=== PATIENT | male | born 1980 ===

== ENCOUNTER 2016-06-22 14:34 | Observation (INO) | payer OTHER ==
--- NOTE | ~2016-06-22 | OP ---
Record Of Operation [facility] [address] [place]. [address] NAME: CHELI TELLEZ : 76 STATUS : ADM [place] PAT#: [id number] AGE: 36 ADM/REG DATE : 06/22/16 MR#: [id number] REPORT SERV DATE: 06/22/16 DICTATED BY: ARNEL SPAULDING DATE: 06/22/16 REPORT STATUS : Draft TRANSCRIBED BY: MODL DATE: 06/22/16 DATE OF PROCEDURE: 06/22/2016 PREOPERATIVE DIAGNOSIS: Acute appendicitis. POSTOPERATIVE DIAGNOSIS: Acute appendicitis. PROCEDURE: Laparoscopic appendectomy. SURGEON: Arnel Spaulding M.D. ANESTHESIA: General. ESTIMATED BLOOD LOSS: 30 mL. DETAILS OF PROCEDURE: The patient arrived in the operating suite and was placed on the table in supine position. General anesthesia obtained via an endotracheal tube. The abdomen was prepped and draped in a sterile manner. A 0.5% Marcaine with epinephrine was infiltrated at the umbilicus, a small incision performed, a 10 mm blunt trocar was inserted to the medial right rectus sheath just within the peritoneal cavity. The peritoneal cavity was then insufflated with CO2 gas to 15 mmHg pressure. Additional trocars were inserted in the upper midline and lower midline. Instruments were introduced. The patient placed in Trendelenburg and rotated to his left. Inspection in the right lower quadrant revealed a gangrenous appendix with minimal fibrinous exudate. No evidence of perforation. The mesoappendix was then scored with cautery and a window at the base of the appendix created for firing of a vascular load through viable tissue at the base of the cecum. The mesoappendix was then divided with a single firing with another 45 mm vascular load. One bleeding vessel through the staple line was controlled with cautery. The blood was removed with suction. The appendix was placed in an Endopouch and withdrawn through the initial trocar site. Trocars were then removed. The peritoneal cavity was desufflated. Skin closure at all sites performed with subcuticular 4-0 Monocryl. Sterile dressing applied. The patient awakened, extubated, and taken to PACU. /PAWAN Arnel Spaulding M.D. / [id number] CC: Che Solis M.D.
[2016-06-22 13:36] LABS: BASOPHILS 0 %; BASOPHILS ABSOLUTE 0.01 10/3/uL (0.0-0.16); EOSINOPHILS 0 %; HEMATOCRIT 41.4 % (40.0-51.0); IMMATURE GRANULOCYTES 0.5 %; LYMPHOCYTES 4.5 %; LYMPHOCYTES ABSOLUTE 0.92 10/3/uL (0.67-4.30); MEAN CORPUS HGB CONC 36.2 g/dL (32.0-36.0); MEAN CORPUSCULAR HEMOGLOB 31.4 pg (26.0-34.0); MEAN CORPUSCULAR VOLUME 86.8 fL (80-100); MEAN PLATELET VOLUME 9.3 fL (9.2-13.0); MONOCYTES 5.2 %; MONOCYTES ABSOLUTE 1.06 10/3/uL (0.21-1.20); NEUTROPHILS 89.8 %; NEUTROPHILS ABSOLUTE 18.16 10/3/uL (2.02-8.40); PLATELET COUNT 258 10/3/uL (150-400); RBC DISTRIBUTION WIDTH 12.1 % (12.0-16.0); RED CELL COUNT 4.77 10/6/uL (4.7-6.1); WHITE BLOOD CELLS 20.3 10/3/uL (4.5-10.5)
[2016-06-22 13:39] LABS: MANUAL DIFF NO %
[2016-06-22 13:54] LABS: A/G RATIO 1.2 (0.7-1.9); ALBUMIN 4.4 G/DL (3.5-5.0); ALKALINE PHOSPHATASE 59 U/L (45-117); BUN (BLOOD UREA NITROGEN) 11 MG/DL (6-23); CALCIUM, SERUM 9.1 MG/DL (8.5-10.4); CHLORIDE, SERUM 103 MMOL/L (96-112); CO2 (CARBON DIOXIDE) 25 MMOL/L (24-34); GFR AFRICAN AMERICAN 125 ML/MIN (>=60); GFR NON AFRICAN AMERICAN 108 ML/MIN (>=60); GLOBULIN 3.7 G/DL (2.5-4.1); GLUCOSE, SERUM 121 MG/DL (60-99); SGOT(AST) 15 U/L (5-40); SGPT(ALT) 25 U/L (5-65); SODIUM, SERUM 140 MMOL/L (135-148); TOTAL PROTEIN 8.1 G/DL (6.0-8.5)
[~2016-06-22 14:34] MED LIST: ADVIL PO; PHENERGAN PO
[2016-06-23] MEDS ORDERED: PR25 PO (08:58)
[2016-06-23] MEDS ORDERED: PCET PO (08:58)
== END 2016-06-23 11:09 | disposition home or self-care (01) ==
LOC: ER 14:34 → SDC/OF 17:11 → 5SO 18:10
PROVIDERS: Emergency Medicine; Specialist
PROC: 0DTJ4ZZ Resection of Appendix, Percutaneous Endoscopic Approach (ICD-10-PCS; principal; 2016-06-22 15:15)
DX: K35.80 Unspecified acute appendicitis (principal)
CPT/HCPCS: 74176; 80053; 81001; 83690; 85025; 88304; 96372; 96374; 96376; 99285; A9270-GY; G0378; J0330; J2250; J2405; J2543; J2710; J3010